=== PATIENT | male | born 1950 | race Caucasian/White ===

== ENCOUNTER 2018-06-01 15:05 | Inpatient (IN) | payer MEDICARE, OTHER ==
[2018-06-01] MEDS ORDERED: ACETAMINOPHEN 325 MG TAB PO (16:00)
[2018-06-01] MEDS ORDERED: PENDING SANTYL ORDER FOR WOUND CARE XX (16:00)
[2018-06-01] MEDS ORDERED: PROCHLORPERAZINE 10 MG TAB PO (17:00)
[2018-06-01] MEDS ORDERED: ONDANSETRON 4 MG TAB PO (17:00)
[2018-06-01] MEDS: HYDROCODONE/APAP (5/325) TAB PO ×2 (17:21→21:51)
[2018-06-01] MEDS: ALBUTEROL/IPRATROPIUM (NEB) 3 ML AMP HHN (20:09)
[2018-06-01] MEDS: DOCUSATE SODIUM 100 MG CAP PO (21:51)
[2018-06-01] MEDS: SENNA TAB PO (21:51)
[2018-06-01 23:01] LABS: ADD UMIC YES; UR ASCORBIC ACID NEGATIVE (NEGATIVE); UR BILIRUBIN (Dip) NEGATIVE (NEGATIVE); UR BLOOD (Dip) 1+ mg/dL (NEGATIVE); UR CLARITY CLEAR (CLEAR); UR COLOR YELLOW (YELLOW); UR GLUCOSE (Dip) NEGATIVE (NEGATIVE); UR KETONES (Dip) TRACE mg/dL (NEGATIVE); UR LEUKOCYTE ESTERASE (Dip) NEGATIVE Leu/ul (NEGATIVE); UR NITRITE (Dip) NEGATIVE (NEGATIVE); UR RBC 0 /HPF (0-5); UR SPECIFIC GRAVITY (Dip) 1.016 (1.003-1.030); UR TOTAL PROTEIN (Dip) NEGATIVE (NEGATIVE); UR UROBILINOGEN (Dip) NEGATIVE (NEGATIVE); UR WBC 1 /HPF (0-5)
[2018-06-02] MEDS: HYDROCODONE/APAP (5/325) TAB PO ×3 (02:57→11:20)
[2018-06-02 06:21] LABS: ADD MAN DIFF? NO
[2018-06-02 06:30] LABS: WHITE BLOOD COUNT 5.6 10^3/ul (4.8-10.8)
[2018-06-02 06:30] LABS: BASOPHILS % 0.2 % (0.0-2.0); EOSINOPHILS # 0.1 10^3/ul (0.0-0.5); EOSINOPHILS % 1.6 % (0.0-7.0); HEMATOCRIT 24.4 % (42.0-52.0); HEMOGLOBIN 8.5 g/dl (14.0-18.0); LYMPHOCYTES # 1.4 10^3/ul (0.8-2.9); LYMPHOCYTES % 25.9 % (15.0-51.0); MEAN CORPUSCULAR HEMOGLOBIN 34.8 pg (29.0-33.0); MEAN CORPUSCULAR HGB CONC 34.8 g/dl (32.0-37.0); MEAN PLATELET VOLUME 9.8 fl (7.4-10.4); MONOCYTE # 0.5 10^3/ul (0.3-0.9); MONOCYTES % 8.8 % (0.0-11.0); NEUTROPHIL # 3.5 10^3/ul (1.6-7.5); NEUTROPHILS % 63.3 % (39.0-77.0); PLATELET COUNT 184 10^3/UL (140-415); RED BLOOD COUNT 2.44 10^6/ul (4.70-6.10); RED CELL DISTRIBUTION WIDTH 11.9 % (11.5-14.5)
[2018-06-02 06:51] LABS: ALANINE AMINOTRANSFERASE 76 IU/L (13-69); ALBUMIN/GLOBULIN RATIO 1.25; ALKALINE PHOSPHATASE 48 IU/L (42-121); ANION GAP 9 (5-13); ASPARTATE AMINO TRANSFERASE 95 IU/L (15-46); BILIRUBIN,INDIRECT 0.8 mg/dl (0-1.1); BILIRUBIN,TOTAL 0.8 mg/dl (0.2-1.3); BLOOD UREA NITROGEN 11 mg/dl (7-20); CALCIUM 7.7 mg/dl (8.4-10.2); CARBON DIOXIDE 28 mmol/L (21-31); CHLORIDE 102 mmol/L (97-110); CREATININE 0.52 mg/dl (0.61-1.24); Estimated GFR > 60 mL/min (>60); GLUCOSE 104 mg/dl (70-220); POTASSIUM 3.5 mmol/L (3.5-5.1); SODIUM 139 mmol/L (135-144); TOTAL PROTEIN 5.4 g/dl (6.1-8.1)
[2018-06-02] MEDS: ALBUTEROL/IPRATROPIUM (NEB) 3 ML AMP HHN ×3 (07:52→19:41)
[2018-06-02] MEDS: DOCUSATE SODIUM 100 MG CAP PO ×2 (09:19→20:57)
[2018-06-02] MEDS: ALLOPURINOL 300 MG TAB PO (09:19)
[2018-06-02] MEDS: FERROUS FUMARATE (SR) TAB PO ×2 (11:20→20:57)
[2018-06-02] MEDS: TAMSULOSIN (SR) 0.4 MG CAP PO (11:20)
[2018-06-02] MEDS: OXYCODONE/ACETAMINOPHEN (5/325) TAB PO ×3 (13:58→23:03)
[2018-06-02 17:06] LABS: ADD UMIC YES; UR ASCORBIC ACID NEGATIVE (NEGATIVE); UR BILIRUBIN (Dip) NEGATIVE (NEGATIVE); UR BLOOD (Dip) 2+ mg/dL (NEGATIVE); UR CLARITY CLEAR (CLEAR); UR COLOR YELLOW (YELLOW); UR GLUCOSE (Dip) NEGATIVE (NEGATIVE); UR KETONES (Dip) TRACE mg/dL (NEGATIVE); UR LEUKOCYTE ESTERASE (Dip) NEGATIVE Leu/ul (NEGATIVE); UR NITRITE (Dip) NEGATIVE (NEGATIVE); UR RBC 22 /HPF (0-5); UR SPECIFIC GRAVITY (Dip) 1.017 (1.003-1.030); UR TOTAL PROTEIN (Dip) 1+ mg/dl (NEGATIVE); UR UROBILINOGEN (Dip) 1+ mg/dL (NEGATIVE); UR WBC 3 /HPF (0-5)
[2018-06-02] MEDS: SENNA TAB PO (20:57)
[2018-06-03] MEDS: LACTULOSE 30ML CUP PO (02:34)
[2018-06-03] MEDS: OXYCODONE/ACETAMINOPHEN (5/325) TAB PO ×5 (03:35→20:30)
[2018-06-03] MEDS: BISACODYL 10 MG SUPP PR (04:01)
[2018-06-03 07:15] LABS: ADD MAN DIFF? NO
[2018-06-03 07:24] LABS: BASOPHILS % 0.4 % (0.0-2.0); EOSINOPHILS # 0.1 10^3/ul (0.0-0.5); EOSINOPHILS % 2.6 % (0.0-7.0); HEMATOCRIT 23.9 % (42.0-52.0); HEMOGLOBIN 8.2 g/dl (14.0-18.0); LYMPHOCYTES # 1.2 10^3/ul (0.8-2.9); LYMPHOCYTES % 22.1 % (15.0-51.0); MEAN CORPUSCULAR HEMOGLOBIN 33.9 pg (29.0-33.0); MEAN CORPUSCULAR HGB CONC 34.3 g/dl (32.0-37.0); MEAN CORPUSCULAR VOLUME 98.8 fl (82.0-101.0); MEAN PLATELET VOLUME 9.9 fl (7.4-10.4); MONOCYTE # 0.5 10^3/ul (0.3-0.9); MONOCYTES % 10.2 % (0.0-11.0); NEUTROPHIL # 3.4 10^3/ul (1.6-7.5); NEUTROPHILS % 63.8 % (39.0-77.0); PLATELET COUNT 184 10^3/UL (140-415); RED BLOOD COUNT 2.42 10^6/ul (4.70-6.10); RED CELL DISTRIBUTION WIDTH 11.9 % (11.5-14.5)
[2018-06-03 07:24] LABS: WHITE BLOOD COUNT 5.3 10^3/ul (4.8-10.8)
[2018-06-03 07:40] LABS: MAGNESIUM 1.9 mg/dl (1.7-2.5)
[2018-06-03 07:40] LABS: PHOSPHORUS 4.5 mg/dl (2.5-4.9)
[2018-06-03] MEDS: MAGNESIUM HYDROXIDE 30ML CUP PO (07:40)
[2018-06-03 07:43] LABS: ALANINE AMINOTRANSFERASE 68 IU/L (13-69); ALBUMIN 3.1 g/dl (3.3-4.9); ALBUMIN/GLOBULIN RATIO 1.29; ALKALINE PHOSPHATASE 48 IU/L (42-121); ANION GAP 8 (5-13); ASPARTATE AMINO TRANSFERASE 56 IU/L (15-46); BILIRUBIN,INDIRECT 0.8 mg/dl (0-1.1); BILIRUBIN,TOTAL 0.8 mg/dl (0.2-1.3); BLOOD UREA NITROGEN 9 mg/dl (7-20); CALCIUM 7.7 mg/dl (8.4-10.2); CARBON DIOXIDE 30 mmol/L (21-31); CHLORIDE 100 mmol/L (97-110); CREATININE 0.56 mg/dl (0.61-1.24); Estimated GFR > 60 mL/min (>60); GLUCOSE 112 mg/dl (70-220); POTASSIUM 3.2 mmol/L (3.5-5.1); SODIUM 138 mmol/L (135-144); TOTAL PROTEIN 5.5 g/dl (6.1-8.1)
[2018-06-03 07:48] LABS: CREATINE KINASE 1369 IU/L (23-200)
[2018-06-03] MEDS: ALBUTEROL/IPRATROPIUM (NEB) 3 ML AMP HHN ×3 (08:12→19:41)
[2018-06-03] MEDS: ALLOPURINOL 300 MG TAB PO (09:00)
[2018-06-03] MEDS: FERROUS FUMARATE (SR) TAB PO (09:00)
[2018-06-03] MEDS: DOCUSATE SODIUM 100 MG CAP PO ×2 (09:00→20:31)
[2018-06-03] MEDS: POTASSIUM CHLORIDE (SR) 20 MEQ TAB PO (09:59)
[2018-06-03 13:37] LABS: OCCULT BLOOD STOOL NEGATIVE (NEGATIVE)
[2018-06-03] MEDS: DEXTROSE 5%-0.45% NACL 1,000 ML IV (14:45)
[2018-06-03 16:20] LABS: PROSTATE SPECIFIC ANTIGEN 0.8 ng/ml (0.0-4.0)
[2018-06-03] MEDS: BETHANECHOL 10 MG TAB PO (20:31)
[2018-06-03] MEDS: SENNA TAB PO (20:31)
[2018-06-03] MEDS: TAMSULOSIN (SR) 0.4 MG CAP PO (20:31)
[2018-06-04] MEDS: OXYCODONE/ACETAMINOPHEN (5/325) TAB PO ×3 (00:09→08:46)
[2018-06-04] MEDS: DEXTROSE 5%-0.45% NACL 1,000 ML IV (00:10)
[2018-06-04 07:28] LABS: ADD MAN DIFF? NO
[2018-06-04 07:30] LABS: WHITE BLOOD COUNT 4.4 10^3/ul (4.8-10.8)
[2018-06-04 07:30] LABS: BASOPHILS % 0.2 % (0.0-2.0); EOSINOPHILS # 0.1 10^3/ul (0.0-0.5); EOSINOPHILS % 2.5 % (0.0-7.0); HEMOGLOBIN 8.1 g/dl (14.0-18.0); LYMPHOCYTES # 1.1 10^3/ul (0.8-2.9); LYMPHOCYTES % 25.9 % (15.0-51.0); MEAN CORPUSCULAR HEMOGLOBIN 33.6 pg (29.0-33.0); MEAN CORPUSCULAR HGB CONC 33.8 g/dl (32.0-37.0); MEAN CORPUSCULAR VOLUME 99.6 fl (82.0-101.0); MEAN PLATELET VOLUME 9.8 fl (7.4-10.4); MONOCYTE # 0.5 10^3/ul (0.3-0.9); MONOCYTES % 11.2 % (0.0-11.0); NEUTROPHIL # 2.6 10^3/ul (1.6-7.5); NEUTROPHILS % 59.5 % (39.0-77.0); PLATELET COUNT 219 10^3/UL (140-415); RED BLOOD COUNT 2.41 10^6/ul (4.70-6.10); RED CELL DISTRIBUTION WIDTH 11.9 % (11.5-14.5)
[2018-06-04 07:50] LABS: ANION GAP 9 (5-13); BLOOD UREA NITROGEN 7 mg/dl (7-20); CALCIUM 7.8 mg/dl (8.4-10.2); CARBON DIOXIDE 28 mmol/L (21-31); CHLORIDE 102 mmol/L (97-110); CREATININE 0.47 mg/dl (0.61-1.24); Estimated GFR > 60 mL/min (>60); GLUCOSE 104 mg/dl (70-220); POTASSIUM 3.3 mmol/L (3.5-5.1); SODIUM 139 mmol/L (135-144)
[2018-06-04] MEDS: ALBUTEROL/IPRATROPIUM (NEB) 3 ML AMP HHN (08:00)
[2018-06-04 08:39] LABS: IONIZED CALCIUM 1.1 mmol/L (1.1-1.4)
[2018-06-04] MEDS: ALLOPURINOL 300 MG TAB PO (08:45)
[2018-06-04] MEDS: DOCUSATE SODIUM 100 MG CAP PO (08:45)
[2018-06-04] MEDS: BETHANECHOL 10 MG TAB PO (08:45)
[2018-06-04] MEDS: NITROGLYCERIN (SL) 0.4 MG TAB SL (09:16)
[2018-06-04] MEDS ORDERED: NITROGLYCERIN (SL) 0.4 MG TAB SL (09:30)
[2018-06-04 09:53] LABS: TROPONIN-I < 0.012 ng/ml (0.000-0.120)
[2018-06-04 10:10] LABS: D-DIMER 5130.06 ng/ml (<460)
== END 2018-06-04 09:38 | disposition short-term general hospital (02) | DRG 560 ==
LOC: VRC 15:05
PROC: F07Z5FZ Bed Mobility Treatment using Assistive, Adaptive, Supportive or Protective Equipment (ICD-10-PCS; principal; 2018-06-02)
PROC: F07Z8FZ Transfer Training Treatment using Assistive, Adaptive, Supportive or Protective Equipment (ICD-10-PCS; 2018-06-02)
PROC: F07Z9FZ Gait Training/Functional Ambulation Treatment using Assistive, Adaptive, Supportive or Protective Equipment (ICD-10-PCS; 2018-06-02)
PROC: F08Z2FZ Grooming/Personal Hygiene Treatment using Assistive, Adaptive, Supportive or Protective Equipment (ICD-10-PCS; 2018-06-02)
PROC: F08Z1FZ Dressing Techniques Treatment using Assistive, Adaptive, Supportive or Protective Equipment (ICD-10-PCS; 2018-06-02)
PROC: F08Z0FZ Bathing/Showering Techniques Treatment using Assistive, Adaptive, Supportive or Protective Equipment (ICD-10-PCS; 2018-06-02)
DX: Z47.89 Encounter for other orthopedic aftercare (principal); M62.82 Rhabdomyolysis; K56.7 Ileus, unspecified; Z98.1 Arthrodesis status; R33.8 Other retention of urine; G47.33 Obstructive sleep apnea (adult) (pediatric); G89.18 Other acute postprocedural pain; M1A.9XX0 Chronic gout, unspecified, without tophus (tophi); E29.1 Testicular hypofunction; K59.00 Constipation, unspecified; M48.062 Spinal stenosis, lumbar region with neurogenic claudication; R07.9 Chest pain, unspecified
CPT/HCPCS: 71045; 74018; 74176; 80048; 80053; 81001; 82270; 82330; 82550; 82962; 83735; 84100; 84153; 84154; 84484; 85025; 85378; 87081; 87086; 93306; 94640; 94664; 97110; 97116; 97163; 97167; 97530; 97535

== ENCOUNTER 2018-06-04 09:47 | Observation (INO) | payer MEDICARE, OTHER ==
[2018-06-04] MEDS ORDERED: ACETAMINOPHEN 325 MG TAB PO (11:30)
[2018-06-04] MEDS ORDERED: ONDANSETRON 4 MG TAB PO (11:30)
[2018-06-04] MEDS ORDERED: BISACODYL 10 MG SUPP PR (11:30)
[2018-06-04] MEDS ORDERED: PROCHLORPERAZINE 10 MG TAB PO (11:30)
[2018-06-04] MEDS ORDERED: NITROGLYCERIN (SL) 0.4 MG TAB SL (11:30)
[2018-06-04] MEDS: ALBUTEROL/IPRATROPIUM (NEB) 3 ML AMP HHN ×2 (13:27→19:58)
[2018-06-04] MEDS: POTASSIUM CHLORIDE (SR) 20 MEQ TAB PO (14:40)
[2018-06-04] MEDS: BETHANECHOL 10 MG TAB PO ×2 (14:41→21:26)
[2018-06-04] MEDS: OXYCODONE/ACETAMINOPHEN (5/325) TAB PO ×3 (15:15→21:36)
[2018-06-04 15:36] LABS: TROPONIN-I < 0.012 ng/ml (0.000-0.120)
[2018-06-04] MEDS: DOCUSATE SODIUM 100 MG CAP PO (21:00)
[2018-06-04] MEDS: SENNA TAB PO (21:00)
[2018-06-04] MEDS: MAGNESIUM HYDROXIDE 30ML CUP PO (21:00)
[2018-06-04] MEDS: TAMSULOSIN (SR) 0.4 MG CAP PO (21:26)
[2018-06-05] MEDS: OXYCODONE/ACETAMINOPHEN (5/325) TAB PO ×5 (03:47→22:00)
[2018-06-05 05:44] LABS: ADD MAN DIFF? NO
[2018-06-05 05:55] LABS: WHITE BLOOD COUNT 4.6 10^3/ul (4.8-10.8)
[2018-06-05 05:55] LABS: BASOPHILS % 0.2 % (0.0-2.0); EOSINOPHILS # 0.2 10^3/ul (0.0-0.5); EOSINOPHILS % 3.3 % (0.0-7.0); HEMATOCRIT 24.2 % (42.0-52.0); HEMOGLOBIN 8.4 g/dl (14.0-18.0); LYMPHOCYTES # 1.2 10^3/ul (0.8-2.9); LYMPHOCYTES % 26.4 % (15.0-51.0); MEAN CORPUSCULAR HEMOGLOBIN 34.9 pg (29.0-33.0); MEAN CORPUSCULAR HGB CONC 34.7 g/dl (32.0-37.0); MEAN CORPUSCULAR VOLUME 100.4 fl (82.0-101.0); MEAN PLATELET VOLUME 9.8 fl (7.4-10.4); MONOCYTE # 0.5 10^3/ul (0.3-0.9); MONOCYTES % 10.3 % (0.0-11.0); NEUTROPHIL # 2.7 10^3/ul (1.6-7.5); NEUTROPHILS % 58.7 % (39.0-77.0); PLATELET COUNT 263 10^3/UL (140-415); RED BLOOD COUNT 2.41 10^6/ul (4.70-6.10); RED CELL DISTRIBUTION WIDTH 11.9 % (11.5-14.5)
[2018-06-05 06:34] LABS: ANION GAP 9 (5-13); BLOOD UREA NITROGEN 7 mg/dl (7-20); CALCIUM 8.1 mg/dl (8.4-10.2); CARBON DIOXIDE 27 mmol/L (21-31); CHLORIDE 103 mmol/L (97-110); CREATININE 0.51 mg/dl (0.61-1.24); Estimated GFR > 60 mL/min (>60); GLUCOSE 131 mg/dl (70-220); POTASSIUM 3.6 mmol/L (3.5-5.1); SODIUM 139 mmol/L (135-144)
[2018-06-05] MEDS: ALBUTEROL/IPRATROPIUM (NEB) 3 ML AMP HHN ×3 (08:32→20:44)
[2018-06-05 09:06] LABS: MAGNESIUM 1.9 mg/dl (1.7-2.5)
[2018-06-05 09:06] LABS: PHOSPHORUS 3.8 mg/dl (2.5-4.9)
[2018-06-05] MEDS: MAGNESIUM HYDROXIDE 30ML CUP PO ×2 (09:29→21:59)
[2018-06-05] MEDS: DOCUSATE SODIUM 100 MG CAP PO ×2 (09:30→21:59)
[2018-06-05] MEDS: ALLOPURINOL 300 MG TAB PO (09:30)
[2018-06-05] MEDS: LACTULOSE 30ML CUP PO (09:30)
[2018-06-05] MEDS: BETHANECHOL 10 MG TAB PO ×3 (09:30→21:59)
[2018-06-05] MEDS: TAMSULOSIN (SR) 0.4 MG CAP PO (21:59)
[2018-06-05] MEDS: SENNA TAB PO (21:59)
[2018-06-06] MEDS: OXYCODONE/ACETAMINOPHEN (5/325) TAB PO ×5 (02:36→20:49)
[2018-06-06] MEDS: ALBUTEROL/IPRATROPIUM (NEB) 3 ML AMP HHN ×3 (07:46→20:54)
[2018-06-06] MEDS: MAGNESIUM HYDROXIDE 30ML CUP PO (08:26)
[2018-06-06] MEDS: LACTULOSE 30ML CUP PO (08:26)
[2018-06-06] MEDS: ALLOPURINOL 300 MG TAB PO (08:26)
[2018-06-06] MEDS: DOCUSATE SODIUM 100 MG CAP PO (08:26)
[2018-06-06] MEDS: BETHANECHOL 10 MG TAB PO ×3 (08:26→20:47)
[2018-06-06 10:37] LABS: ADD MAN DIFF? NO
[2018-06-06 10:39] LABS: WHITE BLOOD COUNT 4.4 10^3/ul (4.8-10.8)
[2018-06-06 10:39] LABS: BASOPHILS % 0.5 % (0.0-2.0); EOSINOPHILS # 0.1 10^3/ul (0.0-0.5); EOSINOPHILS % 2.7 % (0.0-7.0); HEMATOCRIT 24.2 % (42.0-52.0); HEMOGLOBIN 8.2 g/dl (14.0-18.0); LYMPHOCYTES # 1.3 10^3/ul (0.8-2.9); LYMPHOCYTES % 29.3 % (15.0-51.0); MEAN CORPUSCULAR HEMOGLOBIN 34.2 pg (29.0-33.0); MEAN CORPUSCULAR HGB CONC 33.9 g/dl (32.0-37.0); MEAN CORPUSCULAR VOLUME 100.8 fl (82.0-101.0); MEAN PLATELET VOLUME 9.3 fl (7.4-10.4); MONOCYTE # 0.5 10^3/ul (0.3-0.9); NEUTROPHIL # 2.4 10^3/ul (1.6-7.5); NEUTROPHILS % 55.1 % (39.0-77.0); PLATELET COUNT 295 10^3/UL (140-415); RED CELL DISTRIBUTION WIDTH 12.4 % (11.5-14.5)
[2018-06-06 10:59] LABS: ALANINE AMINOTRANSFERASE 49 IU/L (13-69); ALBUMIN 3.4 g/dl (3.3-4.9); ALKALINE PHOSPHATASE 60 IU/L (42-121); ANION GAP 8 (5-13); ASPARTATE AMINO TRANSFERASE 39 IU/L (15-46); BILIRUBIN,INDIRECT 0.6 mg/dl (0-1.1); BILIRUBIN,TOTAL 0.6 mg/dl (0.2-1.3); BLOOD UREA NITROGEN 8 mg/dl (7-20); CALCIUM 8.1 mg/dl (8.4-10.2); CARBON DIOXIDE 26 mmol/L (21-31); CHLORIDE 104 mmol/L (97-110); CREATININE 0.54 mg/dl (0.61-1.24); Estimated GFR > 60 mL/min (>60); GLUCOSE 109 mg/dl (70-220); MAGNESIUM 2.1 mg/dl (1.7-2.5); PHOSPHORUS 4.3 mg/dl (2.5-4.9); POTASSIUM 3.8 mmol/L (3.5-5.1); SODIUM 138 mmol/L (135-144)
[2018-06-06] MEDS ORDERED: DIATR MEGLU/DIATRIZOATE SODIUM 120 ML BTL (13:29)
[2018-06-06] MEDS: METOCLOPRAMIDE 10 MG TAB PO (16:19)
[2018-06-06] MEDS: SOD FERRIC GLUC COMPLX 125 MG in SOD CHLORIDE 0.9% 100 ML IVPB (17:15)
[2018-06-06] MEDS: SENNA TAB PO (20:47)
[2018-06-06] MEDS: TAMSULOSIN (SR) 0.4 MG CAP PO (20:47)
[2018-06-07] MEDS: METOCLOPRAMIDE 10 MG TAB PO ×3 (00:34→13:09)
[2018-06-07] MEDS: OXYCODONE/ACETAMINOPHEN (5/325) TAB PO ×3 (00:35→09:16)
[2018-06-07] MEDS: ALBUTEROL/IPRATROPIUM (NEB) 3 ML AMP HHN (08:19)
[2018-06-07] MEDS: BETHANECHOL 10 MG TAB PO ×2 (09:13→13:09)
[2018-06-07] MEDS: ALLOPURINOL 300 MG TAB PO (09:16)
== END 2018-06-07 13:26 | disposition home or self-care (01) ==
LOC: TEL 09:47
PROVIDERS: Internal Medicine
DX: R07.89 Other chest pain (principal); R33.9 Retention of urine, unspecified; K59.00 Constipation, unspecified; M10.9 Gout, unspecified; E88.09 Other disorders of plasma-protein metabolism, not elsewhere classified; G47.33 Obstructive sleep apnea (adult) (pediatric); E83.51 Hypocalcemia; R74.0 Nonspecific elevation of levels of transaminase and lactic acid dehydrogenase [LDH]; D64.9 Anemia, unspecified; I10 Essential (primary) hypertension; K56.7 Ileus, unspecified; Z98.1 Arthrodesis status
CPT/HCPCS: 74018; 74250; 80048; 80053; 83735; 84100; 84484; 85025; 93005; 94640; 97116; 97161; 97530; 99217; G0378